=== PATIENT | male | born 1965 | race Two or more races ===

== ENCOUNTER 2016-12-22 18:57 | Emergency (ER) | payer OTHER ==
[~2016-12-22] VITALS: Ht 172.7 cm; Wt 90.7 kg
[2016-12-22 20:30] VITALS: BP 128/80
== END 2016-12-22 22:40 | disposition home or self-care (01) ==
LOC: ER 18:58
DX: S96.911A Strain of unspecified muscle and tendon at ankle and foot level, right foot, initial encounter (principal); S66.911A Strain of unspecified muscle, fascia and tendon at wrist and hand level, right hand, initial encounter; S70.01XA Contusion of right hip, initial encounter; W01.0XXA Fall on same level from slipping, tripping and stumbling without subsequent striking against object, initial encounter; Y93.89 Activity, other specified; Y92.89 Other specified places as the place of occurrence of the external cause; Y99.0 Civilian activity done for income or pay
CPT/HCPCS: 73110; 73502; 73610